=== PATIENT | female | born 1940 | race Caucasian/White ===

== ENCOUNTER → 2024-11-06 | Outpatient (CLI) | payer MEDICARE, BC, SELFPAY ==
[2024-11-06 13:58] LABS: Free T4 (Free Thyroxine) 1.53 ng/dL (0.89-1.76); Thyroid Stimulating Hormone 2.93 uIU/mL (0.55-4.78); Uric Acid 7.7 mg/dL (3.1-7.8)
[2024-11-13 06:23] LABS: T3 Uptake* 32 % (22-35)
== END | disposition home or self-care (01) ==
LOC: COPL 11:53
PROVIDERS: PCP Specialist; Referring Provider Specialist; Visit Provider Specialist
DX: E03.4 Atrophy of thyroid (acquired) (principal); M10.9 Gout, unspecified
CPT/HCPCS: 36415; 84439; 84443; 84479; 84550

== ENCOUNTER → 2024-11-29 | Outpatient (CLI) | payer MEDICARE, BC, SELFPAY ==
--- NOTE | 2024-11-29 | XR_ITS ---
Examination: Knee, left , 3 views Technique: Knee AP, lateral, oblique 3 views Date and time of exam: November 29, 2024 1302 hours INDICATIONS: Chronic knee pain. FINDINGS: Severe osteopenia Advanced narrowing and osteoarthritis lateral joint space Moderate narrowing patellofemoral joint No fracture IMPRESSION: Advanced narrowing and osteoarthritis lateral joint space left knee
--- NOTE | 2024-11-29 | XR_ITS ---
Examination: Bilateral knees, standing AP single view Technique: Standing AP bilateral knees, standing single view Exam date and time: November 29, 2023 at 1302 hours INDICATIONS: Knee pain months FINDINGS: Severe osteopenia Moderate narrowing medial joint space right knee Advanced narrowing lateral joint space left knee No fracture No dislocation IMPRESSION: Moderate narrowing medial joint space right knee Advanced narrowing lateral joint space left knee
[2024-11-29 14:50] LABS: Glucose Estimated Average 143 mg/dL (80-131); Hemoglobin A1C 6.6 % Hgb (4.8-6.0)
[2024-11-29 15:00] LABS: Creatinine MALB Rnd Ur 111 mg/dL (30-125); Microalbumin, Random Urine < 3 mg/L (0-300)
[2024-11-29 15:04] LABS: Alanine Aminotransferase 18 U/L (10-49); Albumin, Serum 4.2 gm/dL (3.4-4.8); Albumin/Globulin Ratio 1.9 (1.2-2.2); Alkaline Phosphatase 33 U/L (46-116); Anion Gap 8 (7-16); Aspartate Amino Transferase 20 U/L (0-34); BUN/Creatinine Ratio 23 Ratio (12-20); Bilirubin,Total 0.3 mg/dL (0.3-1.2); Blood Urea Nitrogen 25 mg/dL (9-23); Calcium 9.9 mg/dL (8.3-10.6); Calcium (Corrected) 9.9 mg/dL (8.5-10.1); Carbon Dioxide 31.4 mMol/L (20.0-31.0); Chloride 103 mMol/L (98-107); Cholesterol 214 mg/dL (132-200); Creatinine (Component) 1.1 mg/dL (0.6-1.3); Globulin 2.2 gm/dL (2.3-3.5); Glucose 132 mg/dL (74-106); HDL Cholesterol 108 mg/dL (40-60); LDL Cholesterol,Calculated 79 mg/dL (0-130); Osmolality,Calculated 289 (275-295); Parathyroid Hormone Intact 53.6 pg/ml (18.5-88.0); Potassium 4.8 mMol/L (3.4-5.1); Sodium 142 mMol/L (136-145); Total Protein 6.4 gm/dL (5.7-8.2); Triglycerides 134 mg/dL (30-150); eGFR 50 See Note
[2024-12-06 06:29] LABS: Vitamin D, 25-OH, D2 <4 ng/mL; Vitamin D, 25-OH, D3 55 ng/mL; Vitamin D, 25-OH, Total 55 ng/mL (30-100)
== END | disposition home or self-care (01) ==
LOC: CDIM 12:17 → COPL 13:14
PROVIDERS: PCP Specialist; Referring Provider Specialist; Visit Provider Radiology Diagnostic Radiology
DX: M25.862 Other specified joint disorders, left knee (principal); M25.861 Other specified joint disorders, right knee; M17.12 Unilateral primary osteoarthritis, left knee; E11.65 Type 2 diabetes mellitus with hyperglycemia; E83.52 Hypercalcemia
CPT/HCPCS: 36415; 73560; 73562; 73564; 73565; 80053; 80061; 82043; 82306; 82570; 83036; 83970

== ENCOUNTER 2025-02-06 10:06 | Outpatient (AMB) | payer MEDICARE, BC, SELFPAY ==
[2025-02-06 10:20] VITALS: BP 124/76; PULSE 76; RESP 18; TEMP 36.3; O2SAT 95; BMI 26.8
--- NOTE | 2025-02-06 10:20 | PD.ORTHCLVIS ---
Vital signs 02/06/25 10:20 Height 1.63 m Height Method Stated Weight 70.817 kg Weight Measurement Method Standing Scale BMI 26.8 BP 124/76 Blood Pressure Source Automatic Cuff Blood Pressure Location Right Upper Arm Position Sitting Respiration 18 Pulse 76 Pulse Source Monitor Temp 97.4 F Temp Source Temporal Artery Scan Pulse Oximetry (%) 95 Oxygen Delivery Method Room Air Med/Allergies Allergies & Medications Allergies morphine Allergy (Intermediate, Verified 02/06/25 10:21) RED STREAKING UP AFTER IV DOSE amoxicillin trihydrate Allergy (Mild, Verified 02/06/25 10:21) Gastrointestinal Upset ampicillin Allergy (Mild, Verified 02/06/25 10:21) Gastrointestinal Upset tetracycline Allergy (Mild, Verified 02/06/25 10:21) Rash erythromycin base Allergy (Unknown, Verified 02/06/25 10:21) fibrinolysin Allergy (Unknown, Verified 02/06/25 10:21) meperidine HCl Adverse Reaction (Mild, Verified 02/06/25 10:21) Nausea Medication Reconciliation ketotifen fumarate 0.025 % (0.035 %) eye drops (Alaway) 1 drp Both eyes BID ##0 09/19/14 [History Confirmed 02/06/25] metformin 500 mg tablet (Glucophage) 500 mg PO BIDAC #0 tabs 09/19/14 [History Confirmed 02/06/25] valproic acid 250 mg capsule (Depakene) 250 mg PO BID optical migraines #60 caps 09/27/14 [Rx Confirmed 02/06/25] furosemide 40 mg tablet (Lasix) 40 mg PO QDAY 03/22/18 [History Confirmed 02/06/25] albuterol sulfate 90 mcg/actuation aerosol inhaler (Ventolin HFA) 1 - 2 inh inhalation PRN PRN Wheezing 01/31/19 [History Confirmed 02/06/25] coenzyme Q10 10 mg capsule 10 mg PO QAM 01/31/19 [History Confirmed 02/06/25] ipratropium 20 mcg-albuterol 100 mcg/actuation mist for inhalation (Combivent Respimat) 1 - 2 inh inhalation PRN PRN Wheezing 01/31/19 [History Confirmed 02/06/25] potassium 99 mg tablet 10 meq PO QDAY 01/31/19 [History Confirmed 02/06/25] levothyroxine 88 mcg tablet 88 mcg PO ACBR 30 days #30 tabs 11/24/23 [Rx Confirmed 02/06/25] Exam Exam Patient is in no acute distress and is cooperative with the examination today. Breathing is nonlabored. Patient has a normal mood and affect. Bilateral extremities were evaluated and demonstrates sensation intact to light touch. Palpable pedal pulses are present. No significant edema is present. Bilateral hips were examined. The patient has no pain with log roll of the hips. Internal rotation to 30 degrees and external rotation to 30 degrees is painless. Negative FADIR. Right knee was examined today. The right knee is in reasonable alignment. Range of motion from 0-120 degrees. Knee is stable to varus and valgus as well as AP translation with <5mm. Patient has a negative McMurrays. There is no pain with patellofemoral compression and no crepitus noted. The knee is nontender to palpation. Left knee was examined today. The left knee is in valgus alignment. Range of motion from 0-115 degrees. Knee is stable to varus and valgus as well as AP translation with <5mm. Patient has a negative McMurrays. There is no pain with patellofemoral compression and no crepitus noted. The knee is tender to palpation Laterally X-rays were personally reviewed. This demonstrates joint space narrowing laterally and valgus arthritis Assessment and Plan Problem List (1) Arthritis of left knee: Status: Acute Plan: Patient is an 85-year-old female with left knee pain and a left knee valgus arthritis. We discussed nonoperative options. She would like a cortisone injection today. I also discussed total knee replacement and discussed in detail. She would like to think about this. She will plan for a left knee injection today Recommend knee cortisone injection as patient would like to proceed with conservative treatment at this time. The risks and benefits of the procedure were reviewed with the patient and patient gave verbal consent to continue with the procedure. Procedure: performed by Dr. Sexton Using sterile technique the left knee was thoroughly prepped with alcohol, and approximately 1 cc of Kenalog 40 mg/mL and 4 cc of 1% lidocaine was injected without resistance into the medial tibial femoral joint space. The patient tolerated the procedure. Advanced Care Planning Discussion Advance care planning discussed with:: patient Office Procedures GNS Level of Care Nursing/Assessment Patient Status: Initial/New Patient Nursing Assessment/Reassesment: Medication Reconciliation, Update PMH in EMR and Vital Signs Coordination of Care: Complex Care and Chronic Disease 1-5, Education Complex Pt/Fam, Consent,records obtained, informed consent, 1 Ins Authorization, Lab and Imaging orders, Results/Orders obtained and Staff clarify orders New Patient Charge New Patient Point Assignment: 1124 New Patient Point Charge: ETYMOLOGY PROFESSOR Level 4 ([id number]) Surgical Proc/IM SQ injection Major Surgical Procedure: Yes (KNEE INJECTION) Medication Given Medication Given Medication Given: Yes Documented Dose Given: 4 Route: Infiitration Medication Given Medication Given Medication Given: Yes Documented Dose Given: 1 Route: Infiitration Office Meds Xylocaine 10 mg/mL (1 %) injection solution Performing Provider: Neville Sexton MD Performing Location: [facility] Administered by: Neville Sexton MD on 02/06/25 11:16 Dose Route Admin Location Dispensed Lot Number Expiration Date [facility] Solar Installer Technician 20 mL Infiltration 20 mL [id number] 03/26/28 87183-253-99 [facility] triamcinolone acetonide 40 mg/mL suspension for injection Performing Provider: Neville Sexton MD Performing Location: [facility] Administered by: Neville Sexton MD on 02/06/25 11:16 Dose Route Admin Location Dispensed Lot Number Expiration Date [facility] Solar Installer Technician 40 mg intra-articular KNEE 1 mL [id number] 07/26/26 1181-7358-43 [employer] [place] Intake Visit Data Collection New Patient or Established: Established Patient (seen at [facility] within 3 years) Reason for Visit:: LEFT KNEE PAIN Seen by Clinical Staff ONLY (RN/MA): No Verbal consent obtained for Telemed visit?: No Guardian Family Member Required: No PCP or OBGYN visit in last 3 months: Yes Hx Now: No Do You Feel Safe at Home: Yes Authorities Contacted: N/A Questionairres Past Medical History Past Medical History Have you ever been diagnosed with any of the following: Neurological Problems Seizures: No Migraine: Yes (OCULAR) Cardiology Problems Heart Murmur: Yes Hypercholesterolemia: Yes Congestive Heart Failure: No Edema: Yes Hypotension: Yes Respiratory Problems Chronic Obstructive Pulmonary Disease (COPD): No Asthma: Yes Bronchitis: Yes Pneumonia: Yes Smoking: No Smoking Cessation Counseling: No Smoking Exposure: No Tobacco Use: No Stomache/Intestinal Problems Gall Bladder Disease: Yes Diverticulitis: Yes Gastroesophageal Reflux Disease: Yes Genital/Urinary Problems Renal Disease: No Reproductive Problems Breast Cancer: Yes (x2, left breast 2000 and 2015) Previous Pregnancies: Yes Musculoskeletal Problems Arthritis: Yes Degenerative Disk Disease: Yes Fractures: Yes (L1, L2) Head,Eye,Nose,Throat Problems Cataracts: Yes Blind: No Endocrine Problems Diabetes Mellitus Type 1: No Diabetes Mellitus Type 2: Yes Hyperthyroidism: Yes Hypothyroidism: Yes Blood Problems Anemia: No Sickle Cell Disease: No Clotting Problems: No Psychologic Problems Anxiety: Yes Other Problems Hospitalization: No Down Syndrome: No Developmental Delay: No Shingles: No Falls: No Blood Transfusions: No Blood Transfusion Reaction: No Anesthesia Reactions: No Chicken Pox: Yes Measles: Yes Mumps: Yes Rubella ([place]erratian Measles): Yes Subjective Visit Visit for: new patient and knee Immunization / Flu Flu Vaccine in the Last 12 Months: No Flu Vaccine Exclusion Criteria: No Exclusion Criteria History of Present Illness Chief complaint: LEFT KNEE PAIN Date of injury / onset of symptoms: 6 MONTHS Patient is an 85-year-old female with arthritis of the left knee. The pain has been bothering her for quite a while. She takes Tylenol. She is not any injections and uses a walker. She reports that she is not ready for surgery. She lives alone Personal History Occupation: RETIRED Red flag PMH: none BMI Counceling provided: No Pain Pain level (0-10): 6 Pain duration: COMES AND GOES Pain location: inside (medial) and outside (lateral) Pain quality: sharp, dull and aching Pain timing: increases with activity Associated signs & symptoms: none Ambulatory data Ambulatory device: walker Treatments Improvement with previous injections: No Improvement with PT: No Improvement with NSAIDS: yes (TYLENOL) Review of Systems Review of Systems: All systems negative unless otherwise noted in HPI.
== END 2025-02-06 11:29 | disposition home or self-care (01) ==
LOC: HODSRG 10:06
PROVIDERS: PCP Specialist; Referring Provider Specialist; Supervising Provider Orthopaedic Surgery Adult Reconstructive Orthopaedic Surgery; Visit Provider Orthopaedic Surgery Adult Reconstructive Orthopaedic Surgery
DX: M17.12 Unilateral primary osteoarthritis, left knee (principal); E78.00 Pure hypercholesterolemia, unspecified; J45.909 Unspecified asthma, uncomplicated
CPT/HCPCS: 20610; 99204; J3301; J3490; G0463

== ENCOUNTER → 2025-04-24 | Outpatient (CLI) | payer MEDICARE, BC, SELFPAY ==
[2025-04-24 09:58] LABS: Misc Send Out* See Sep Rpt
[2025-04-24 10:27] LABS: Basophils # (Auto) 0.1 Thou/mm3 (0.0-0.2); Basophils % (Auto) 1 % (0-2.5); Eosinophils # (Auto) 0.2 Thou/mm3 (0.0-0.5); Eosinophils % (Auto) 4 % (0-10); Hematocrit 39.5 % (36.0-46.0); Hemoglobin 13.4 g/dL (12.0-16.0); Immature Granulocytes % (Auto) 1 % (0-0); Immature Granulocytes Auto 0.04 Thou/mm3 (0.00-0.00); Lymphocytes # (Auto) 1.1 Thou/mm3 (1.0-4.8); Lymphocytes % (Auto) 21 % (10-50); Mean Corpuscular HGB Conc 33.9 g/dl (31.0-37.0); Mean Corpuscular Hemoglobin 32.7 pg (25.0-35.0); Mean Corpuscular Volume 96 fL (80-100); Monocytes # (Auto) 0.6 Thou/mm3 (0.0-0.8); Monocytes % (Auto) 11 % (0-12); Neutrophils # (Auto) 3.2 Thou/mm3 (1.8-7.7); Neutrophils % (Auto) 62 % (37-80); Nucleated Red Blood Cell % 0 /100 WBC (0); Platelet Count 237 Thou/mm3 (140-440); RDW Standard Deviation 45.6 fL (36.4-46.3); White Blood Count 5.1 Thou/mm3 (3.6-11.0)
[2025-04-24 10:46] LABS: Alanine Aminotransferase 21 U/L (10-49); Albumin/Globulin Ratio 2.2 (1.2-2.2); Alkaline Phosphatase 46 U/L (46-116); Anion Gap 9 (7-16); Aspartate Amino Transferase 22 U/L (0-34); BUN/Creatinine Ratio 25 Ratio (12-20); Bilirubin,Total 0.4 mg/dL (0.3-1.2); Blood Urea Nitrogen 25 mg/dL (9-23); Carbon Dioxide 31.4 mMol/L (20.0-31.0); Cardiac Risk Estimate 2.5 RATIO (3.7-5.6); Chloride 103 mMol/L (98-107); Cholesterol 196 mg/dL (132-200); Free T4 (Free Thyroxine) 1.41 ng/dL (0.89-1.76); Globulin 1.8 gm/dL (2.3-3.5); Glucose 150 mg/dL (74-106); HDL Cholesterol 79 mg/dL (40-60); LDL Cholesterol,Calculated 89 mg/dL (0-130); Osmolality,Calculated 292 (275-295); Potassium 4.4 mMol/L (3.4-5.1); Sodium 143 mMol/L (136-145); Thyroid Stimulating Hormone 6.38 uIU/mL (0.55-4.78); Total Protein 5.8 gm/dL (5.7-8.2); Triglycerides 139 mg/dL (30-150); eGFR 56 See Note
[2025-04-24 10:55] LABS: Glucose Estimated Average 163 mg/dL (80-131); Hemoglobin A1C 7.3 % Hgb (4.8-6.0)
[2025-04-24 11:30] LABS: Folate 22.23 ng/mL (>5.38); Vitamin B12 567 pg/mL (211-911)
[2025-04-24 13:32] LABS: Creatinine MALB Rnd Ur 170 mg/dL (30-125); Microalbumin Creat Ratio 6 mg/gCrea (<30); Microalbumin, Random Urine 11 mg/L (0-300)
== END | disposition home or self-care (01) ==
PROVIDERS: PCP Specialist; Referring Provider Specialist; Visit Provider Specialist
DX: D53.1 Other megaloblastic anemias, not elsewhere classified (principal); E03.9 Hypothyroidism, unspecified; E11.65 Type 2 diabetes mellitus with hyperglycemia; E78.2 Mixed hyperlipidemia; R74.02 Elevation of levels of lactic acid dehydrogenase [LDH]
CPT/HCPCS: 36415; 80053; 80061; 82043; 82570; 82607; 82746; 83036; 84439; 84443; 85025

== ENCOUNTER 2025-05-13 12:52 | Outpatient (AMB) | payer MEDICARE, BC, SELFPAY ==
[2025-05-13 13:07] VITALS: BP 132/74; PULSE 79; RESP 18; TEMP 36.5; O2SAT 94; BMI 26.9
--- NOTE | 2025-05-13 13:07 | PD.ORTHCLVIS ---
Vital signs 05/13/25 13:07 Height 1.63 m Height Method Stated Weight 71.384 kg Weight Measurement Method Standing Scale BMI 26.9 BP 132/74 H Blood Pressure Source Automatic Cuff Blood Pressure Location Right Upper Arm Position Sitting Respiration 18 Pulse 79 Pulse Source Monitor Temp 97.7 F Temp Source Temporal Artery Scan Pulse Oximetry (%) 94 L Oxygen Delivery Method Room Air Med/Allergies Allergies & Medications Allergies morphine Allergy (Intermediate, Verified 05/13/25 13:07) RED STREAKING UP AFTER IV DOSE amoxicillin trihydrate Allergy (Mild, Verified 05/13/25 13:07) Gastrointestinal Upset ampicillin Allergy (Mild, Verified 05/13/25 13:07) Gastrointestinal Upset tetracycline Allergy (Mild, Verified 05/13/25 13:07) Rash erythromycin base Allergy (Unknown, Verified 05/13/25 13:07) fibrinolysin Allergy (Unknown, Verified 05/13/25 13:07) meperidine HCl Adverse Reaction (Mild, Verified 05/13/25 13:07) Nausea Medication Reconciliation ketotifen fumarate 0.025 % (0.035 %) eye drops (Alaway) 1 drp Both eyes BID ##0 09/19/14 [History Confirmed 05/13/25] metformin 500 mg tablet (Glucophage) 500 mg PO BIDAC #0 tabs 09/19/14 [History Confirmed 05/13/25] valproic acid 250 mg capsule (Depakene) 250 mg PO BID optical migraines #60 caps 09/27/14 [Rx Confirmed 05/13/25] furosemide 40 mg tablet (Lasix) 40 mg PO QDAY 03/22/18 [History Confirmed 05/13/25] albuterol sulfate 90 mcg/actuation aerosol inhaler (Ventolin HFA) 1 - 2 inh inhalation PRN PRN Wheezing 01/31/19 [History Confirmed 05/13/25] coenzyme Q10 10 mg capsule 10 mg PO QAM 01/31/19 [History Confirmed 05/13/25] ipratropium 20 mcg-albuterol 100 mcg/actuation mist for inhalation (Combivent Respimat) 1 - 2 inh inhalation PRN PRN Wheezing 01/31/19 [History Confirmed 05/13/25] potassium 99 mg tablet 10 meq PO QDAY 01/31/19 [History Confirmed 05/13/25] levothyroxine 88 mcg tablet 88 mcg PO ACBR 30 days #30 tabs 11/24/23 [Rx Confirmed 05/13/25] Exam Exam Patient is in no acute distress and is cooperative with the examination today. Breathing is nonlabored. Patient has a normal mood and affect. Bilateral extremities were evaluated and demonstrates sensation intact to light touch. Palpable pedal pulses are present. No significant edema is present. Bilateral hips were examined. The patient has no pain with log roll of the hips. Internal rotation to 30 degrees and external rotation to 30 degrees is painless. Negative FADIR. Right knee was examined today. The right knee is in reasonable alignment. Range of motion from 0-120 degrees. Knee is stable to varus and valgus as well as AP translation with <5mm. Patient has a negative McMurrays. There is no pain with patellofemoral compression and no crepitus noted. The knee is nontender to palpation. Left knee was examined today. The left knee is in valgus alignment. Range of motion from 0-115 degrees. Knee is stable to varus and valgus as well as AP translation with <5mm. Patient has a negative McMurrays. There is no pain with patellofemoral compression and no crepitus noted. The knee is tender to palpation Laterally X-rays were personally reviewed. This demonstrates joint space narrowing laterally and valgus arthritis Assessment and Plan Problem List (1) Arthritis of left knee: Status: Acute Plan: Patient is an 85-year-old female with left knee pain and a left knee valgus arthritis. We discussed nonoperative options. She reports she only received a month of relief. We have tried injections in the past and NSAIDS. She has failed conservative treatment and we thus discussed TKA as a reasonable option. The nature and purpose of the total knee replacement, alternative method(s) of treatment, the material risks involved, and the possibility of complications were fully explained to the patient. The patient does NOT have any of the following contraindications to TKA: - Active infection of the knee joint, OR - Active systemic bacteremia, OR - Active skin infection or open wound at surgical site, OR - Neuropathic arthritis, OR - Severe, rapidly progressive neurological disease, OR - Severe medical condition that makes risks of surgery outweigh the potential benefit. ?The patient was told the most common risks and complications associated with a total knee replacement include, but are not limited to: blood clots in the leg, stiffness, fatal pulmonary embolism, dislocation of the prosthesis, intraoperative and postoperative fractures of the femur or tibia, infection, failure of the prosthesis or grafting materials, complications from anesthesia, reactions to blood transfusions, postoperative leg length inequality, instability of the knee replacement, nerve damage or injury, vascular injury, delayed wound healing, infection, other injury or even . In addition, there are risks associated with anesthesia given during this operation. Also, the patient was told that after undergoing a total knee replacement there may still be persistent pain or disability. The patient was informed that the success of this operation in part depends upon the mechanical devices which are going to be implanted and that these devices can fail or malfunction, and may need to be repaired or replaced and there are no guarantees as to the longevity of this device or its parts and that it or its parts could fail prematurely. The importance of compliance with physical therapy was also discussed with the patient. The patient was also notified that during the course of surgery, there may be a need to use bone graft from donors, and that any bone graft used will be carefully screened for communicable diseases, including AIDS, hepatitis, Valdemar-Creutzfeldt, or other diseases, but despite the screening procedures, there is a small chance that they could contract one of these diseases. Finally, the patient was asked to follow completely and fully with all advice and recommended treatments, and that recovery and ultimate outcome are affected by their compliance with recommended treatment. We discussed the risks, benefits and treatment alternatives, and the patient is interested in proceeding with surgery. We will try to set this up as expeditiously as possible. Advanced Care Planning Discussion Advance care planning discussed with:: patient Office Procedures GNS Level of Care Nursing/Assessment Patient Status: Established Patient Nursing Assessment/Reassesment: Medication Reconciliation, Update PMH in EMR and Vital Signs Coordination of Care: Complex Care and Chronic Disease 1-5, Education Complex Pt/Fam, Consent,records obtained, informed consent, Results/Orders obtained and Staff clarify orders Established Patient Charge Established Patient Point Assignment: 95 Established Patient Point Charge: Level 3 (80-115) MA Intake Visit Data Collection New Patient or Established: Established Patient (seen at [facility] within 3 years) Reason for Visit:: knee injections Seen by Clinical Staff ONLY (RN/MA): No Verbal consent obtained for Telemed visit?: No Veteran Appeals Reviewer Required: No PCP or OBGYN visit in last 3 months: Yes Hx Now: No Do You Feel Safe at Home: Yes Authorities Contacted: N/A Questionairres Past Medical History Past Medical History Have you ever been diagnosed with any of the following: Neurological Problems Seizures: No Migraine: Yes (OCULAR) Cardiology Problems Heart Murmur: Yes Hypercholesterolemia: Yes Congestive Heart Failure: No Edema: Yes Hypotension: Yes Respiratory Problems Chronic Obstructive Pulmonary Disease (COPD): No Asthma: Yes Bronchitis: Yes Pneumonia: Yes Smoking: No Smoking Cessation Counseling: No Smoking Exposure: No Tobacco Use: No Stomache/Intestinal Problems Gall Bladder Disease: Yes Diverticulitis: Yes Gastroesophageal Reflux Disease: Yes Genital/Urinary Problems Renal Disease: No Reproductive Problems Breast Cancer: Yes (x2, left breast 2000 and 2015) Previous Pregnancies: Yes Musculoskeletal Problems Arthritis: Yes Degenerative Disk Disease: Yes Fractures: Yes (L1, L2) Head,Eye,Nose,Throat Problems Cataracts: Yes Blind: No Endocrine Problems Diabetes Mellitus Type 1: No Diabetes Mellitus Type 2: Yes Hyperthyroidism: Yes Hypothyroidism: Yes Blood Problems Anemia: No Sickle Cell Disease: No Clotting Problems: No Psychologic Problems Anxiety: Yes Other Problems Hospitalization: No Down Syndrome: No Developmental Delay: No Shingles: No Falls: No Blood Transfusions: No Blood Transfusion Reaction: No Anesthesia Reactions: No Chicken Pox: Yes Measles: Yes Mumps: Yes Rubella ([place]uv[place] Measles): Yes Subjective Visit Visit for: new patient, follow up visit, knee and injections Immunization / Flu Flu Vaccine in the Last 12 Months: No Flu Vaccine Exclusion Criteria: No Exclusion Criteria History of Present Illness Chief complaint: LEFT KNEE PAIN Date of injury / onset of symptoms: 6 MONTHS Patient is an 85-year-old female with arthritis of the left knee. The pain has been bothering her for quite a while. She takes Tylenol. She has tried injections in the past. She lives alone. Personal History Occupation: RETIRED Red flag PMH: BMI and none BMI Counceling provided: No Pain Pain level (0-10): 6 Pain duration: COMES AND GOES Pain location: inside (medial) and outside (lateral) Pain quality: sharp, dull and aching Pain timing: increases with activity Associated signs & symptoms: none Ambulatory data Ambulatory device: walker Treatments Improvement with previous injections: No Improvement with PT: No Improvement with NSAIDS: yes (TYLENOL) Review of Systems Review of Systems: All systems negative unless otherwise noted in HPI.
== END 2025-05-13 13:21 | disposition home or self-care (01) ==
LOC: HODSRG 12:52
PROVIDERS: PCP Specialist; Referring Provider Specialist; Supervising Provider Orthopaedic Surgery Adult Reconstructive Orthopaedic Surgery; Visit Provider Orthopaedic Surgery Adult Reconstructive Orthopaedic Surgery
DX: M17.12 Unilateral primary osteoarthritis, left knee (principal); M25.562 Pain in left knee; E78.00 Pure hypercholesterolemia, unspecified; K21.9 Gastro-esophageal reflux disease without esophagitis; E11.9 Type 2 diabetes mellitus without complications; E03.9 Hypothyroidism, unspecified
CPT/HCPCS: 99213; G0463

== ENCOUNTER → 2025-07-03 | Outpatient (CLI) | payer MEDICARE, BC, SELFPAY ==
[2025-07-03 13:09] LABS: Misc Send Out* See Sep Rpt
[2025-07-03 13:30] LABS: Basophils # (Auto) 0.0 Thou/mm3 (0.0-0.2); Basophils % (Auto) 1 % (0-2.5); Eosinophils # (Auto) 0.0 Thou/mm3 (0.0-0.5); Eosinophils % (Auto) 1 % (0-10); Hematocrit 39.1 % (36.0-46.0); Hemoglobin 13.0 g/dL (12.0-16.0); Immature Granulocytes Auto 0.03 Thou/mm3 (0.00-0.00); Lymphocytes # (Auto) 1.9 Thou/mm3 (1.0-4.8); Lymphocytes % (Auto) 27 % (10-50); Mean Corpuscular HGB Conc 33.2 g/dl (31.0-37.0); Mean Corpuscular Hemoglobin 32.6 pg (25.0-35.0); Mean Corpuscular Volume 98 fL (80-100); Monocytes # (Auto) 0.6 Thou/mm3 (0.0-0.8); Monocytes % (Auto) 8 % (0-12); Neutrophils # (Auto) 4.4 Thou/mm3 (1.8-7.7); Neutrophils % (Auto) 63 % (37-80); Nucleated Red Blood Cell # 0.00 Thou/mm3 (0.00-0.00); Nucleated Red Blood Cell % 0 /100 WBC (0); Platelet Count 209 Thou/mm3 (140-440); RDW Standard Deviation 48.0 fL (36.4-46.3); Red Blood Count 3.99 Miln/mm3 (4.00-5.20); White Blood Count 7.0 Thou/mm3 (3.6-11.0)
[2025-07-03 13:34] LABS: Glucose Estimated Average 169 mg/dL (80-131); Hemoglobin A1C 7.5 % Hgb (4.8-6.0)
[2025-07-03 13:44] LABS: Alanine Aminotransferase 12 U/L (10-49); Albumin, Serum 4.0 gm/dL (3.4-4.8); Albumin/Globulin Ratio 2.2 (1.2-2.2); Alkaline Phosphatase 35 U/L (46-116); Anion Gap 9 (7-16); Aspartate Amino Transferase 18 U/L (0-34); BUN/Creatinine Ratio 18 Ratio (12-20); Bilirubin,Total 0.3 mg/dL (0.3-1.2); Blood Urea Nitrogen 22 mg/dL (9-23); Calcium 9.4 mg/dL (8.3-10.6); Calcium (Corrected) 9.4 mg/dL (8.5-10.1); Carbon Dioxide 27.8 mMol/L (20.0-31.0); Cardiac Risk Estimate 2.2 RATIO (3.7-5.6); Chloride 104 mMol/L (98-107); Cholesterol 190 mg/dL (132-200); Creatinine (Component) 1.2 mg/dL (0.6-1.3); Folate > 24.00 ng/mL (>5.38); Free T3 2.5 pg/mL (2.3-4.2); Free T4 (Free Thyroxine) 1.30 ng/dL (0.89-1.76); Globulin 1.8 gm/dL (2.3-3.5); Glucose 187 mg/dL (74-106); HDL Cholesterol 85 mg/dL (40-60); LDL Cholesterol,Calculated 68 mg/dL (0-130); Osmolality,Calculated 289 (275-295); Potassium 4.8 mMol/L (3.4-5.1); Sodium 141 mMol/L (136-145); Thyroid Stimulating Hormone 6.71 uIU/mL (0.55-4.78); Total Protein 5.8 gm/dL (5.7-8.2); Triglycerides 185 mg/dL (30-150); Vitamin B12 378 pg/mL (211-911); eGFR 45 See Note
== END | disposition home or self-care (01) ==
LOC: COPL 12:50
PROVIDERS: PCP Specialist; Referring Provider Specialist; Visit Provider Specialist
DX: E11.65 Type 2 diabetes mellitus with hyperglycemia (principal); E78.2 Mixed hyperlipidemia; E03.9 Hypothyroidism, unspecified; D53.1 Other megaloblastic anemias, not elsewhere classified; R74.02 Elevation of levels of lactic acid dehydrogenase [LDH]
CPT/HCPCS: 36415; 80053; 80061; 82043; 82570; 82607; 82746; 83036; 83615; 83625; 84439; 84443; 84481; 85025

== ENCOUNTER → 2025-07-04 | Outpatient (CLI) | payer MEDICARE, BC, SELFPAY ==
[2025-07-04 12:40] LABS: Creatinine MALB Rnd Ur 28 mg/dL (30-125); Microalbumin, Random Urine < 3 mg/L (0-300)
== END | disposition home or self-care (01) ==
LOC: SLDO 11:24
PROVIDERS: PCP Specialist; Referring Provider Specialist; Visit Provider Specialist
DX: E11.65 Type 2 diabetes mellitus with hyperglycemia (principal); D53.1 Other megaloblastic anemias, not elsewhere classified; E78.2 Mixed hyperlipidemia; E03.9 Hypothyroidism, unspecified
CPT/HCPCS: 82043; 82570

== ENCOUNTER → 2025-08-22 | Outpatient (CLI) | payer MEDICARE, BC, SELFPAY ==
[2025-08-22 13:12] LABS: Glucose Estimated Average 154 mg/dL (80-131); Hemoglobin A1C 7.0 % Hgb (4.8-6.0)
[2025-08-22 13:20] LABS: Albumin, Serum 3.9 gm/dL (3.4-4.8); Anion Gap 11 (7-16); BUN/Creatinine Ratio 14 Ratio (12-20); Blood Urea Nitrogen 20 mg/dL (9-23); Calcium 10.1 mg/dL (8.3-10.6); Calcium (Corrected) 10.2 mg/dL (8.5-10.1); Carbon Dioxide 27.1 mMol/L (20.0-31.0); Chloride 103 mMol/L (98-107); Creatinine (Component) 1.4 mg/dL (0.6-1.3); Free T3 2.2 pg/mL (2.3-4.2); Free T4 (Free Thyroxine) 1.25 ng/dL (0.89-1.76); Glucose 191 mg/dL (74-106); Osmolality,Calculated 288 (275-295); Phosphorous 4.3 mg/dL (2.4-5.1); Potassium 4.4 mMol/L (3.4-5.1); Sodium 141 mMol/L (136-145); Thyroid Stimulating Hormone 8.18 uIU/mL (0.55-4.78); eGFR 37 See Note
== END | disposition home or self-care (01) ==
PROVIDERS: PCP Specialist; Referring Provider Specialist; Visit Provider Specialist
DX: E03.9 Hypothyroidism, unspecified (principal); E11.65 Type 2 diabetes mellitus with hyperglycemia
CPT/HCPCS: 36415; 80069; 83036; 84439; 84443; 84481

== ENCOUNTER 2025-09-16 08:55 | Outpatient (AMB) | payer MEDICARE, BC, SELFPAY ==
--- NOTE | 2025-09-16 09:34 | PD.ORTHCLVIS ---
Vital signs 09/16/25 09:35 Height 1.63 m Height Method Stated Weight 72.32 kg Weight Measurement Method Standing Scale BMI 27.2 BP 149/79 H Blood Pressure Source Automatic Cuff Blood Pressure Location Left Upper Arm Position Sitting Respiration 19 Pulse 82 Pulse Source Monitor Temp 96.2 F L Temp Source Temporal Artery Scan Pulse Oximetry (%) 92 L Oxygen Delivery Method Room Air Med/Allergies Allergies & Medications Allergies morphine Allergy (Intermediate, Verified 09/16/25 09:35) RED STREAKING UP AFTER IV DOSE amoxicillin trihydrate Allergy (Mild, Verified 09/16/25 09:35) Gastrointestinal Upset ampicillin Allergy (Mild, Verified 09/16/25 09:35) Gastrointestinal Upset tetracycline Allergy (Mild, Verified 09/16/25 09:35) Rash erythromycin base Allergy (Unknown, Verified 09/16/25 09:35) fibrinolysin Allergy (Unknown, Verified 09/16/25 09:35) meperidine HCl Adverse Reaction (Mild, Verified 09/16/25 09:35) Nausea Medication Reconciliation ketotifen fumarate 0.025 % (0.035 %) eye drops ([place]) 1 drp Both eyes BID ##0 09/19/14 [History Confirmed 09/16/25] metformin 500 mg tablet (Glucophage) 500 mg PO BIDAC #0 tabs 09/19/14 [History Confirmed 09/16/25] valproic acid 250 mg capsule (Depakene) 250 mg PO BID optical migraines #60 caps 09/27/14 [Rx Confirmed 09/16/25] furosemide 40 mg tablet (Lasix) 40 mg PO QDAY 03/22/18 [History Confirmed 09/16/25] albuterol sulfate 90 mcg/actuation aerosol inhaler (Ventolin HFA) 1 - 2 inh inhalation PRN PRN Wheezing 01/31/19 [History Confirmed 09/16/25] coenzyme Q10 10 mg capsule 10 mg PO QAM 01/31/19 [History Confirmed 09/16/25] ipratropium 20 mcg-albuterol 100 mcg/actuation mist for inhalation (Combivent Respimat) 1 - 2 inh inhalation PRN PRN Wheezing 01/31/19 [History Confirmed 09/16/25] potassium 99 mg tablet 10 meq PO QDAY 01/31/19 [History Confirmed 09/16/25] levothyroxine 88 mcg tablet 88 mcg PO ACBR 30 days #30 tabs 11/24/23 [Rx Confirmed 09/16/25] Exam Exam Patient is in no acute distress and is cooperative with the examination today. Breathing is nonlabored. Patient has a normal mood and affect. Bilateral extremities were evaluated and demonstrates sensation intact to light touch. Palpable pedal pulses are present. No significant edema is present. Bilateral hips were examined. The patient has no pain with log roll of the hips. Internal rotation to 30 degrees and external rotation to 30 degrees is painless. Negative FADIR. Right knee was examined today. The right knee is in reasonable alignment. Range of motion from 0-120 degrees. Knee is stable to varus and valgus as well as AP translation with <5mm. Patient has a negative McMurrays. There is no pain with patellofemoral compression and no crepitus noted. The knee is nontender to palpation. Left knee was examined today. The left knee is in valgus alignment. Range of motion from 0-115 degrees. Knee is stable to varus and valgus as well as AP translation with <5mm. Patient has a negative McMurrays. There is no pain with patellofemoral compression and no crepitus noted. The knee is tender to palpation Laterally X-rays were personally reviewed. This demonstrates joint space narrowing laterally and valgus arthritis Assessment and Plan Problem List (1) Arthritis of left knee: Status: Acute Plan: Patient is an 85-year-old female with left knee pain and a left knee valgus arthritis. We discussed nonoperative options. She reports she only received a month of relief. We have tried injections in the past and NSAIDS. She has failed conservative treatment and we thus discussed TKA as a reasonable option. The nature and purpose of the total knee replacement, alternative method(s) of treatment, the material risks involved, and the possibility of complications were fully explained to the patient. The patient does NOT have any of the following contraindications to TKA: - Active infection of the knee joint, OR - Active systemic bacteremia, OR - Active skin infection or open wound at surgical site, OR - Neuropathic arthritis, OR - Severe, rapidly progressive neurological disease, OR - Severe medical condition that makes risks of surgery outweigh the potential benefit. ?The patient was told the most common risks and complications associated with a total knee replacement include, but are not limited to: blood clots in the leg, stiffness, fatal pulmonary embolism, dislocation of the prosthesis, intraoperative and postoperative fractures of the femur or tibia, infection, failure of the prosthesis or grafting materials, complications from anesthesia, reactions to blood transfusions, postoperative leg length inequality, instability of the knee replacement, nerve damage or injury, vascular injury, delayed wound healing, infection, other injury or even . In addition, there are risks associated with anesthesia given during this operation. Also, the patient was told that after undergoing a total knee replacement there may still be persistent pain or disability. The patient was informed that the success of this operation in part depends upon the mechanical devices which are going to be implanted and that these devices can fail or malfunction, and may need to be repaired or replaced and there are no guarantees as to the longevity of this device or its parts and that it or its parts could fail prematurely. The importance of compliance with physical therapy was also discussed with the patient. The patient was also notified that during the course of surgery, there may be a need to use bone graft from donors, and that any bone graft used will be carefully screened for communicable diseases, including AIDS, hepatitis, Valdemar-Creutzfeldt, or other diseases, but despite the screening procedures, there is a small chance that they could contract one of these diseases. Finally, the patient was asked to follow completely and fully with all advice and recommended treatments, and that recovery and ultimate outcome are affected by their compliance with recommended treatment. We discussed the risks, benefits and treatment alternatives, and the patient is interested in proceeding with surgery. We will try to set this up as expeditiously as possible. Advanced Care Planning Discussion Advance care planning discussed with:: patient and child Office Procedures GNS Level of Care Nursing/Assessment Patient Status: Established Patient Nursing Assessment/Reassesment: Medication Reconciliation, Update PMH in EMR and Vital Signs Coordination of Care: Complex Care and Chronic Disease 1-5, Education Complex Pt/Fam, Consent,records obtained, informed consent, Results/Orders obtained and Staff clarify orders Established Patient Charge Established Patient Point Assignment: 95 Established Patient Point Charge: Level 3 (80-115) MA Intake Visit Data Collection New Patient or Established: Established Patient (seen at [facility] within 3 years) Reason for Visit:: PRE OP L TKA Seen by Clinical Staff ONLY (RN/MA): No Verbal consent obtained for Telemed visit?: No Maintenance Helper Required: No PCP or OBGYN visit in last 3 months: Yes Hx Now: No Do You Feel Safe at Home: Yes Authorities Contacted: N/A Questionairres Past Medical History Past Medical History Have you ever been diagnosed with any of the following: Neurological Problems Seizures: No Migraine: Yes (OCULAR) Cardiology Problems Heart Murmur: Yes Hypercholesterolemia: Yes Congestive Heart Failure: No Edema: Yes Hypotension: Yes Respiratory Problems Chronic Obstructive Pulmonary Disease (COPD): No Asthma: Yes Bronchitis: Yes Pneumonia: Yes Smoking: No Smoking Cessation Counseling: No Smoking Exposure: No Tobacco Use: No Stomache/Intestinal Problems Gall Bladder Disease: Yes Diverticulitis: Yes Gastroesophageal Reflux Disease: Yes Genital/Urinary Problems Renal Disease: No Reproductive Problems Breast Cancer: Yes (x2, left breast 2000 and 2015) Previous Pregnancies: Yes Musculoskeletal Problems Arthritis: Yes Degenerative Disk Disease: Yes Fractures: Yes (L1, L2) Head,Eye,Nose,Throat Problems Cataracts: Yes Blind: No Endocrine Problems Diabetes Mellitus Type 1: No Diabetes Mellitus Type 2: Yes Hyperthyroidism: Yes Hypothyroidism: Yes Blood Problems Anemia: No Sickle Cell Disease: No Clotting Problems: No Psychologic Problems Anxiety: Yes Other Problems Hospitalization: No Down Syndrome: No Developmental Delay: No Shingles: No Falls: No Blood Transfusions: No Blood Transfusion Reaction: No Anesthesia Reactions: No Chicken Pox: Yes Measles: Yes Mumps: Yes Rubella (Syriac Measles): Yes Subjective Visit Visit for: follow up visit and knee (LEFT) Immunization / Flu Flu Vaccine in the Last 12 Months: No Flu Vaccine Exclusion Criteria: No Exclusion Criteria History of Present Illness Chief complaint: LEFT KNEE PAIN Date of injury / onset of symptoms: 6 MONTHS Patient is an 85-year-old female with arthritis of the left knee. The pain has been bothering her for quite a while. She takes Tylenol. She has tried injections in the past. She lives alone. Personal History Occupation: RETIRED [employer] PMH: BMI and none BMI Counceling provided: No Additional comments: PATIENT HAS HER OWN WALKER FOR TKA SX Pain Pain level (0-10): 4 Pain duration: COMES AND GOES Pain location: inside (medial) and outside (lateral) Pain quality: sharp, dull and aching Pain timing: increases with activity Associated signs & symptoms: none Ambulatory data Ambulatory device: walker Treatments Improvement with previous injections: No Improvement with PT: No Improvement with NSAIDS: yes (TYLENOL) Review of Systems Review of Systems: All systems negative unless otherwise noted in HPI.
[2025-09-16 09:35] VITALS: BP 149/79; PULSE 82; RESP 19; TEMP 35.7; O2SAT 92; BMI 27.2
== END 2025-09-16 09:55 | disposition home or self-care (01) ==
LOC: HODSRG 08:55
PROVIDERS: PCP Specialist; Referring Provider Specialist; Supervising Provider Orthopaedic Surgery Adult Reconstructive Orthopaedic Surgery; Visit Provider Orthopaedic Surgery Adult Reconstructive Orthopaedic Surgery
DX: M17.12 Unilateral primary osteoarthritis, left knee (principal); M25.562 Pain in left knee; E11.9 Type 2 diabetes mellitus without complications; Z79.84 Long term (current) use of oral hypoglycemic drugs
CPT/HCPCS: 99213; G0463

== ENCOUNTER → 2025-09-18 | Outpatient (CLI) | payer MEDICARE, BC, SELFPAY ==
--- NOTE | 2025-09-18 13:30 | XR_ITS ---
Examination: Retroperitoneal ultrasound, complete Technique: Multiple high resolution grayscale images of the retroperitoneum obtained, including kidneys and bladder. Exam date and time: September 18, 2025, 1244 hours INDICATIONS: Renal insufficiency, elevated creatinine on laboratory examination 08/22/2025 FINDINGS: Right kidney 10.0 cm renal cortex 1.2 cm Left kidney 8.7 cm renal cortex 1.4 cm Mild renal scar formation No hydronephrosis Bladder obscured by bowel gas IMPRESSION: Small left kidney Bilateral renal cortical thinning Mild renal scar formation
== END | disposition home or self-care (01) ==
LOC: CDIM 12:35
PROVIDERS: PCP Specialist; Referring Provider Specialist; Visit Provider Specialist
DX: N27.0 Small kidney, unilateral (principal); N28.89 Other specified disorders of kidney and ureter
CPT/HCPCS: 76770

== ENCOUNTER → 2025-10-27 | Outpatient (CLI) | payer MEDICARE, BC, SELFPAY ==
[2025-10-27 13:34] LABS: Alanine Aminotransferase 20 U/L (10-49); Albumin, Serum 4.6 gm/dL (3.4-4.8); Albumin/Globulin Ratio 2.1 (1.2-2.2); Alkaline Phosphatase 35 U/L (46-116); Anion Gap 8 (7-16); Aspartate Amino Transferase 24 U/L (0-34); BUN/Creatinine Ratio 22 Ratio (12-20); Bilirubin,Total 0.3 mg/dL (0.3-1.2); Blood Urea Nitrogen 26 mg/dL (9-23); Calcium 10.3 mg/dL (8.3-10.6); Calcium (Corrected) 10.3 mg/dL (8.5-10.1); Carbon Dioxide 31.4 mMol/L (20.0-31.0); Chloride 102 mMol/L (98-107); Creatinine (Component) 1.2 mg/dL (0.6-1.3); Free T4 (Free Thyroxine) 1.58 ng/dL (0.89-1.76); Globulin 2.2 gm/dL (2.3-3.5); Glucose 115 mg/dL (74-106); Osmolality,Calculated 286 (275-295); Phosphorous 4.4 mg/dL (2.4-5.1); Potassium 4.5 mMol/L (3.4-5.1); Sodium 141 mMol/L (136-145); Thyroid Stimulating Hormone 6.15 uIU/mL (0.55-4.78); Total Protein 6.8 gm/dL (5.7-8.2); eGFR 45 See Note
== END | disposition home or self-care (01) ==
PROVIDERS: PCP Specialist
DX: E03.9 Hypothyroidism, unspecified (principal); E11.22 Type 2 diabetes mellitus with diabetic chronic kidney disease; N18.9 Chronic kidney disease, unspecified; D47.2 Monoclonal gammopathy; G43.909 Migraine, unspecified, not intractable, without status migrainosus; J45.909 Unspecified asthma, uncomplicated; K21.9 Gastro-esophageal reflux disease without esophagitis; M15.0 Primary generalized (osteo)arthritis; M25.562 Pain in left knee; M48.55XS Collapsed vertebra, not elsewhere classified, thoracolumbar region, sequela of fracture; M54.50 Low back pain, unspecified; M81.0 Age-related osteoporosis without current pathological fracture; Z13.820 Encounter for screening for osteoporosis; Z78.0 Asymptomatic menopausal state; Z79.899 Other long term (current) drug therapy; Z85.3 Personal history of malignant neoplasm of breast
CPT/HCPCS: 36415; 80053; 84100; 84439; 84443